=== PATIENT | female | born 1955 | race Caucasian/White ===

== ENCOUNTER 2022-03-05 05:12 | Observation (INO) ==
--- NOTE | 2022-01-29 13:08 | PAT Medication Instructions ---
Medication Instructions Date of Service January 29, 2022 Home Medications Medication Instructions Recorded Jenny Walker #1 ea 01/24/22 atorvastatin 10 mg tablet 10 mg PO QPM cholecalciferol (vitamin D3) 125 mcg (5,000 unit) capsule 125 mcg PO WK lisinopril 20 mg tablet 20 mg PO QAM metformin 500 mg tablet 500 mg PO QPM Jenny Gray #1 ea 01/24/22 [Rx] DO NOT take the morning of surgery cholecalciferol (vitamin D3) 125 mcg (5,000 unit) capsule 125 mcg PO WK lisinopril 20 mg tablet 20 mg PO QAM Take evening before surgery atorvastatin 10 mg tablet 10 mg PO QPM metformin 500 mg tablet 500 mg PO QPM Insulin Dependent Diabetic Patients NOTHING TO EAT OR DRINK AFTER MIDNIGHT. Other Notes If you have any questions please call us at [phone] or [phone] or [phone] or [phone]
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
[2022-03-05] MEDS ORDERED: LR 500ML BOLUS, THEN 15ML/HR IV SCH (06:00)
[2022-03-05] MEDS ORDERED: Ketorolac (*for OR use only*) 30 MG, dexAMETHasone 4 MG, KETAMINE HCL (**OR use only) 1... INFIL SCH (06:00)
[2022-03-05] MEDS ORDERED: ceFAZolin 2000MG 2,000 MG/15 ML SYR IV SCH (06:00)
[2022-03-05] MEDS ORDERED: dexAMETHasone 4 MG TAB PO SCH (06:00)
[2022-03-05] MEDS ORDERED: GABAPENTIN 600 MG DOSE PO SCH (06:00)
[2022-03-05] MEDS ORDERED: LR 60ML/HR IV SCH (06:00)
[2022-03-05] MEDS ORDERED: TRANEXAMIC ACID 1,000 MG **IV Pre-op IV SCH (06:00)
[2022-03-05] MEDS ORDERED: TRANEXAMIC ACID 1,000 MG **IV Intra-op IV SCH (06:00)
[2022-03-05] MEDS ORDERED: ACETAMINOPHEN 500 MG TAB PO SCH (06:00)
[2022-03-05] MEDS ORDERED: ROPIVACAINE 0.5% 5 MG/ML 30 ML VIAL ONE (06:30)
[2022-03-05] MEDS ORDERED: BUPIVACAINE 0.5 % 5 MG/1 ML PF 10ML VIAL ONE (06:30)
[2022-03-05] MEDS ORDERED: ORTHO JOINT ANESTHETIC ONE (06:39)
[2022-03-05] MEDS ORDERED: fentaNYL citrate 100 MCG/2 ML VIAL ONE (06:46)
[2022-03-05] MEDS ORDERED: MIDAZOLAM HCL 1 MG/ML 2ML VIAL ONE (06:46)
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
[2022-03-05] MEDS ORDERED: LIDOCAINE 2% MPF LOCAL 5 ML VIAL INFIL ONE (06:53)
[2022-03-05] MEDS ORDERED: PROPOFOL IV EMULSION 10 MG/ML 20 ML VIAL IV ONE ×4 (06:53→09:03)
[2022-03-05] MEDS ORDERED: SCOPOLAMINE 1 MG TDSY TD ONE (07:03)
[2022-03-05] MEDS ORDERED: ONDANSETRON INJ 2 MG/ML 2 ML VIAL ONE ×2 (07:36→09:39)
[2022-03-05] MEDS ORDERED: HYDROmorphone INJ 1 MG/ML SYRINGE IV PRN (08:05)
[2022-03-05] MEDS ORDERED: ONDANSETRON INJ 2 MG/ML 2 ML VIAL IV PRN ×2 (08:05→10:31)
[2022-03-05] MEDS ORDERED: KETOROLAC 30 MG/ML VIAL IV PRN (08:05)
[2022-03-05] MEDS ORDERED: ATROPINE SULFATE 0.1 MG/ML 10ML SYR IV PRN (08:05)
[2022-03-05] MEDS ORDERED: ePHEDrine sulfate 50 MG/ML AMP IV PRN (08:05)
[2022-03-05] MEDS ORDERED: PROMETHAZINE HCL 12.5 MG in SODIUM CHLORIDE 0.9% 50 ML IV PRN (08:05)
[2022-03-05] MEDS ORDERED: DEXAMETHASONE SOD INJ 4 MG/ML VIAL ONE ×2 (09:39→10:54)
--- NOTE | 2022-03-05 09:48 | Operative Report ---
PG Post Operative Report Pre & Post Diagnosis Operation Date: 03/05/22 07:15 Pre-Op Diagnosis: Bilateral Knee Osteoarthritis Post-Op Diagnosis: Bilateral Knee Osteoarthritis I identified the patient and participated in the time-out.: Yes Procedure Operation Date: 03/05/22 07:15 Actual Procedures p Bilateral Total Knee Arthroplasty, Cemented(Bilateral) - Jules Orlando DO Surgeon Jules Orlando DO Bilingual Speech Therapist Jules Rocha PA-C Estimated Blood Loss 50 Findings Consistent with Post-Op Diagnosis Specimens Right femoral and tibial bone Left femoral and tibial bone Description of Procedure Bonnie arrived [facility] for the above procedure. She was seen in the preoperative holding area and both knees were identified and signed. She was given a preoperative antibiotic, TXA, a spinal anesthetic and adductor nerve blocks. She was taken back to the operating room and laid on the table in supine position. She was given basic sedation. Both knees were then prepped and draped in sterile fashion. A timeout was done, and the patient and the operative extremities were properly identified. Right knee implants used: I used a Rand Persona total knee arthroplasty system with a size 4 standard PS femur, C tibia with a 30 mm stem extension, 31 oval patella, and a size 14 CPS polyethylene bearing. All components were cemented in place with Palacos G cement. A midline incision was made directly over the patella. Dissection was taken down to the extensor mechanism. A subvastus arthrotomy was used. The medial retinaculum was released and the fat pad was mostly excised. The knee was flexed and the ACL, PCL, and meniscus were removed. A drill was sent down the center of the femoral canal followed by an intramedullary joe. Off that joe a distal femoral cutting block was placed. 9 mm was resected off the distal femur at 5 of valgus. A posterior referencing AP sizing guide was then placed on the distal femur. The femur measured to be a size 4. 2 drill holes were placed in 3 of external rotation. A 4-in-1 cutting block was then impacted into place. Anterior, posterior, and chamfer cuts were then made. The proximal tibia was then exposed. An external tibial alignment guide was placed. A tibial cut guide was then anchored in place and the proximal tibia was then resected. The posterior aspect of the knee was then opened up and any additional meniscus fragments and osteophytes were removed. The tibia measured to be a size C. The tibial plate was then placed in the appropriate rotation and the tibia was drilled and punched. Trial components were then placed. I used a size 14 CPS polyethylene insert. The knee was brought through a full range of motion and felt to be stable. The peg holes for the femur were then drilled. The patella was then everted and 9 mm was resected off the posterior aspect of the patella. The patella measured to be a size 31 oval. 3 peg holes were then drilled. A trial patella was placed. The knee was once again brought through a full range of motion and felt to be stable. Trial components were then removed. The surrounding soft tissues were injected with 50 cc of an orthopedic pain control cocktail. All components were then cemented into place with Palacos G cement. The final polyethylene insert was then snapped into place. Once cement was dry the tourniquet was deflated. Hemostasis was obtained. A dilute betadyne lavage was then done for 3 minutes. The joint was then irrigated with normal saline solution. The subvastus arthrotomy was then closed with #1 Vicryl suture. The skin was closed with 2-0 Vicryl, 3-0V lock suture, and maddie. A Silverlon and a soft compressive dressing were placed. Left knee implants used: I used a Rand Persona total knee arthroplasty system with a size 5 standard PS femur, C tibia with a 30 mm stem extension, 28 oval patella, and a size 10 CPS polyethylene bearing. All components were cemented in place with Palacos G cement. A midline incision was made directly over the patella. Dissection was taken down to the extensor mechanism. A subvastus arthrotomy was used. The medial retinaculum was released and the fat pad was mostly excised. The knee was flexed and the ACL, PCL, and meniscus were removed. A drill was sent down the center of the femoral canal followed by an intramedullary joe. Off that joe a distal femoral cutting block was placed. 9 mm was resected off the distal femur at 5 of valgus. A posterior referencing AP sizing guide was then placed on the distal femur. The femur measured to be a size 5. 2 drill holes were placed in 3 of external rotation. A 4-in-1 cutting block was then impacted into place. Anterior, posterior, and chamfer cuts were then made. The proximal tibia was then exposed. An external tibial alignment guide was placed. A tibial cut guide was then anchored in place and the proximal tibia was resected. The posterior aspect of the knee was then opened up and any additional meniscus fragments and osteophytes were removed. The tibia measured to be a size C. The tibial plate was then placed in the appropriate rotation and the tibia was drilled and punched. Trial components were then placed. I used a size 10 CPS polyethylene insert. The knee was brought through a full range of motion and felt to be stable. The peg holes for the femur were then drilled. The patella was then everted and 9 mm was resected off the posterior aspect of the patella. The patella measured to be a size 28 oval. 3 peg holes were then drilled. A trial patella was placed. The knee was once again brought through a full range of motion and felt to be stable. Trial components were then removed. The surrounding soft tissues were injected with 50 cc of an orthopedic pain control cocktail. All components were then cemented into place with Palacos G cement. The final polyethylene insert was then snapped into place. Once cement was dry the tourniquet was deflated. Hemostasis was obtained. A dilute betadyne lavage was then done for 3 minutes. The joint was then irrigated with normal saline solution. The subvastus arthrotomy was then closed with #1 Vicryl suture. The skin was closed with 2-0 Vicryl, 3-0V lock suture, and maddie. A Silverlon and a soft compressive dressing were placed. Dale was then transferred to a hospital bed and taken to the postanesthesia care unit in stable condition. She tolerated the procedure well. Jules Rocha PA-C, was present for the entire procedure. He was critical for patient positioning, prepping, draping, retraction exposure, wound closure and application of sterile dressing. I attest to the content of the Intraoperative Record and any orders documented therein. Any exceptions are noted below.
--- NOTE | 2022-03-05 10:28 | XRay Report ---
XR knee LT 1 or 2V routine CLINICAL HISTORY: Surgical Post Op TECHNIQUE: 2 views of the left knee were obtained. Comparison: None available at the time of this dictation. FINDINGS: Patient is status post total knee arthroplasty with expected postsurgical changes including soft tiss ue swelling and subcutaneous emphysema. No periarticular lucency or hardware fracture is seen. IMPRESSION: Expected postoperative appearance status post placement of total knee arthroplasty. ACT 112: Negative or not required by law. Electronically signed by: Jericho Carr M.D. 03/05/2022 10:27 AM
[2022-03-05] MEDS ORDERED: bisacodyL 10 MG SUPP PR PRN (10:31)
[2022-03-05] MEDS ORDERED: MAGNESIUM HYDROXIDE SUSP 30 ML UDC PO PRN (10:31)
[2022-03-05] MEDS ORDERED: NALOXONE HCL 0.4 MG/1 ML VIAL/CARP IV PRN (10:31)
[2022-03-05] MEDS ORDERED: PHARMACY GLYCEMIC MGMT CONSULT PRN (10:31)
[2022-03-05] MEDS ORDERED: METOCLOPRAMIDE HCL INJ 5 MG/ML 2 ML VIAL IV PRN (10:31)
--- NOTE | 2022-03-05 10:32 | XRay Report ---
RIGHT KNEE 2 VIEWS History: Right total knee arthroplasty. Degenerative arthritis. Postop. FINDINGS: The patient is status post a right total knee arthroplasty. The hardware is intact. No frac ture or dislocation. Skin maddie are in place. IMPRESSION: Right total knee arthroplasty. No evidence for hardware complication. ACT 112: Negative or not required by law. Electronically signed by: Miki Delgadillo M.D. 03/05/2022 10:30 AM
--- NOTE | 2022-03-05 12:38 | Anesthesiology Progress Note ---
Date of Service March 05, 2022 Anesthesia Post Procedure Vital Signs Vital Signs: Temp Pulse Pulse Resp BP Pulse Ox O2 Del Method 03/05/22 11:30 68 18 110/87 97 Nasal Cannula 03/05/22 11:00 65 24 130/74 99 Nasal Cannula 03/05/22 10:30 71 17 117/71 97 Nasal Cannula 03/05/22 10:25 36.1 C L 74 14 126/71 97 Nasal Cannula 03/05/22 10:15 72 13 122/79 96 Nasal Cannula 03/05/22 10:05 82 12 111/62 95 Nasal Cannula 03/05/22 09:55 36.2 C L 91 H 23 112/60 92 Nasal Cannula 03/05/22 05:40 36.8 C 72 20 169/86 H 96 Room Air O2 Flow Rate 03/05/22 11:30 2 03/05/22 11:00 2 03/05/22 10:30 2 03/05/22 10:25 2 03/05/22 10:15 2 03/05/22 10:05 2 03/05/22 09:55 2 03/05/22 05:40 Transfer of Care Handoff Completed per policy Notes Mental Status: alert / awake / arousable Patient Amnestic to Procedure: Yes Nausea / Vomiting: adequately controlled Pain: adequately controlled Airway Patency, RR, SpO2: stable & adequate BP & HR: stable & adequate Hydration State: stable & adequate Neuraxial Anesthesia: was administered and sensory block is resolving Anesthetic Complications: no major complications apparent
[2022-03-05] MEDS ORDERED: LANTUS PER UNIT CHARGE SQ STA (12:52)
[2022-03-05] MEDS ORDERED: DEXTROSE 50% 50 ML SYRINGE IV PRN (13:00)
[2022-03-05] MEDS ORDERED: GLUCAGON FOR INJ 1 MG VIAL IM PRN (13:00)
[2022-03-05] MEDS ORDERED: GLUCOSE 10 TAB/TUBE PO PRN (13:00)
[2022-03-05] MEDS ORDERED: GLUCOSE 40% GEL 15 GM TUBE PO PRN (13:00)
[2022-03-05] MEDS ORDERED: CARBOHYDRATES FOR HYPOGLYCEMIA PO PRN (13:00)
--- NOTE | 2022-03-05 13:30 | Pharmacy Report ---
Pharmacy Glycemic Short Note 2 - Date of Service March 05, 2022 - Glycemic Short BSG Results (Last 24 hours): 03/05/22 03/05/22 05:30 09:56 POC Glucose 135 H 175 H OUTPATIENT ANTIDIABETIC REGIMEN: * Metformin 500 mg PO PM * HbA1c = 6.8% (02/07/22) ASSESSMENT: * 67 yo F admitted postoperatively following bilateral knee arthroplasties today. Pharmacy has been consulted to assist with inpatient glycemic managem ent. Patient is a well controlled type 2 diabetic on metformin monotherapy as an outpatient based on most recent A1c. Ordered and tolerating a type 2 diabetic diet. Did received 8 mg PO dexamethasone PO preoperatively and 4 mg IV dexamethasone intraoperatively. * Preop BSG was 135 mg/dL. Postop BSG was 175 mg/dL. * Will give a one-time dose of basal insulin today to cover for dexamethasone that was received. Given no further steroids ordered, do not expect patient to require more basal insulin tomorrow. Could likely be started back on Metformin tomorrow evening. * Starting Novolog based on weight/stress of 2-3. Will target a tighter goal range of 110-140 mg/dL to prevent postoperative infection and promote wound healing. PLAN FOR INPATIENT GLYCEMIC CONTROL: * Hold outpatient oral diabetes medications * Basal insulin * Lantus 25g units SC x 1 * Bolus insulin * NovoLog per scale ACHS or Q6hrs while NPO * Goal Range: Low 110 mg/dL - High 140 mg/dL * Correction Factor: 20 mg/dL/unit * Nutritional / Prandial insulin per carb ratio of 1 unit per 7 grams CHO consumed
[2022-03-05] MEDS: KETOROLAC 30 MG/ML VIAL IV SCH ×3 (13:48→21:35)
[2022-03-05] MEDS: SODIUM CHLORIDE 0.9% 1000ML 1,000 ML IV SCH ×2 (13:52→21:33)
[2022-03-05] MEDS: INSULIN ASPART PER UNIT SC SCH ×3 (14:06→21:32)
[2022-03-05] MEDS: ACETAMINOPHEN 500 MG TAB PO SCH ×2 (15:06→21:34)
[2022-03-05] MEDS: oxyCODONE HCL IR 5 MG TAB (IMMEDIATE RELEASE) PO PRN (16:07)
[2022-03-05] MEDS: ceFAZolin 2000MG 2,000 MG/15 ML SYR IV SCH (18:17)
[2022-03-05] MEDS: HYDROmorphone INJ 0.5 MG/0.5 ML SYR IV PRN (18:36)
[2022-03-05] MEDS: DOCUSATE SODIUM 100 MG CAP PO SCH (20:14)
[2022-03-05] MEDS ORDERED: ATORVASTATIN 10 MG TAB PO SCH (21:00)
[2022-03-05] MEDS ORDERED: SENNA 8.6 MG TAB PO SCH (21:00)
[2022-03-06] MEDS: INSULIN ASPART PER UNIT SC SCH ×4 (00:03→12:27)
[2022-03-06] MEDS: ceFAZolin 2000MG 2,000 MG/15 ML SYR IV SCH (00:13)
[2022-03-06] MEDS: oxyCODONE HCL IR 5 MG TAB (IMMEDIATE RELEASE) PO PRN ×3 (00:14→12:35)
[2022-03-06] MEDS: KETOROLAC 30 MG/ML VIAL IV SCH ×2 (05:02→10:38)
[2022-03-06] MEDS: ACETAMINOPHEN 500 MG TAB PO SCH ×2 (05:03→13:33)
--- NOTE | 2022-03-06 06:34 | Orthopedic Progress Note ---
Date of Service March 06, 2022 Assessment & Plan (1) Status post bilateral knee replacements: Overall she is doing very well. She is not having much pain in both knees. She will be seen by physical therapy today for ambulation and range of motion exercises. She is on Xarelto for DVT prophylaxis. She can be discharged home later today. She will follow-up with orthopedics in 2 weeks. Gorge Nicole was seen and examined at bedside this morning. Overall she is doing very well. She is having very little pain in her knees. She has been up and ambulating. She has no complaints.. Review of Systems All systems reviewed & are unremarkable except as noted in HPI & below. Physical Exam On physical examination of both knees, the dressings are clean and dry. Her legs are out full extension. She has active dorsiflexion plantarflexion of both ankles.. Results & Data Results & Data Laboratory Results . Diagnostic Findings Postoperative x-rays of both knees show the prosthesis to be in anatomic alignment without any evidence of fracture, desiccation, or loosening. PG Care Time/CCT Total # of Minutes Spent Total Time Spent with Patient: Total time spent is greater than 50% in coordination of care (as documented) at patient's floor/unit and/or counseling patient: Coding Level of Care Code 73583 Post Operative Follow-Up Diagnoses Status post bilateral knee replacements Z96.653
--- NOTE | 2022-03-06 06:35 | Discharge Summary ---
Date of Service March 06, 2022 Admission HPI (Per Admitting) Bonnie is a pleasant 66-year-old female whohas been dealing withchronicbilateral knee pain. It has been much worse recently. She works in retail. She has been seeingorthopedist in [place]. She has had multiple injections of her knees. She has MRIs of both knees and x-rays. Everything showschronic worsening arthritis of her knees. She isgetting to the point where she cannot live with it anymore. After failing extensive conservative treatment, she elected to proceed with bilateral knee replacement surgeries. . Admission Exam (Per Admitting) On physical examination of her knees, she has range of motion from 5 to 115 degrees. No instability. Pain over the distal medial femoral condyles and over the medial joint line.. Principal Diagnosis Same as "Discharge Diagnosis" noted below under Discharge Instructions. Discharge Exam On physical examination of both knees, the dressings are clean and dry. Her legs are out full extension. She has active dorsiflexion plantarflexion of both ankles.. Discharge Data Procedures Performed Operation Date: 03/05/22 07:15 Actual Procedures p Bilateral Total Knee Arthroplasty, Cemented(Bilateral) - Jules Orlando DO Ordered Studies 03/05/22 05:00 US - OR guided needle placemen Routine Hospital Course (1) Status post bilateral knee replacements: On March 05, 2022 Bonnie arrived at [facility] and underwent bilateral knee replacements without complication. She had a spinal anesthetic. Postoperatively she was started on Xarelto for DVT prophylaxis and transferred to the general orthopedic floors. Her hospital course was uneventful. On postop day #1, her vital signs were stable and her pain was well controlled. She was able to participate well with physical therapy doing ambulation and range of motion exercises. She was then discharged home. She will follow-up with orthopedics in 2 weeks. PG Care Time/CCT Total # of Minutes Spent Total Time Spent with Patient: Total time spent is greater than 50% in coordination of care (as documented) at patient's floor/unit and/or counseling patient: Discharge Plan Discharge Items Patient Disposition: Home - Home Health Services Reason For Visit: Bilateral Knee Osteoarthritis Discharge Diagnosis: Bilateral knee replacements Activity: Per Instructions section Non-emergency contact: Surgeon Call non-emergency contact if: your wound has increased redness and your wound has increased drainage Follow-up/Referrals: Felix Huang PA-C [Primary Care Provider] - Diet: Regular Addtl Attending Provider Instructions: Activity and Therapy Recommendations: * If you are using [facility] then therapy will be provided at your home until they feel you have accomplished all of your goals. * If you are using [facility] then Physical Therapy will be provided until they feel you are ready to start Outpatient Physical Therapy. * If you are not using home therapy then Outpatient Physical Therapy should start about 3-5 days from your day of surgery. Therapy will last about 6-10 weeks * It is important not to put a pillow under your knee when you are relaxing or sleeping. It is just as important to make sure you are getting your knee perfectly straight as it is to regain your knee bend. * You were shown a series of exercises in the hospital. Do these exercises three times each day including the exercises you were shown in physical therapy. * Get up and walk several times each day. For the first four weeks, try not to stand or walk for more than one hour at a time. If you do stand or walk for more than one hour, you will not hurt anything, but your leg will likely swell. * As you feel comfortable, you may change from the walker or crutches to a cane and then to independent walking. Medications: * Narcotic You will likely be sent home from the hospital with a prescription for the narcotic pain medication that worked best throughout your stay. * Aspirin Most patients will be required to take Aspirin 81mg twice a day for 6 weeks after surgery. This is obtained [id number] and a prescription is not necessary. * Other medications may be prescribed for specific circumstances. If you have any questions, please call the office at . * Resume previous home medications unless otherwise instructed TEDs/Elastic Stockings: The white elastic stockings help limit swelling and prevent blood clots from forming in your legs.~ The more you wear them, the more they work. Wear them for six weeks. Dressing Care: The dressing can be changed after physical therapy on postop day #1. Daily dry dressing changes for a few days, especially if the incision is still draining some. If the incision is not draining then you may leave the maddie open to air. If there is a little bit of drainage or if the maddie are getting stuck on your clothing then cover the incision with a dry dressing. The maddie will be removed at your 2 week follow-up appointment. Showering: You may shower 5 days from the day of surgery as long as the incision is no longer draining. You may shower with the maddie exposed. Let soapy water run over the maddie and pat them dry. Do not scrub or soak the incision. Things To Watch For: * Drainage from the incision site that occurs more than one week after your surgery. * Increased redness at the incision site. * Fever above 102 degrees Fahrenheit. * Unusual chest pain or shortness of breath. * Call [facility] at with any of the above problems Follow-Up Visit: Follow-up with Dr. Orlando's PA (Jules Rocha) 2-3 weeks after your day of surgery. He will remove your maddie and answer any questions. If you have any additional questions or concerns, Dr Orlando is usually in the office at the same time and will be available An appointment was probably scheduled when you signed-up for surgery in the office. If you have any questions call Office Instructions: More detailed instructions as well as Frequently Asked Questions were provided in a folder by our office when you signed-up for surgery. Please review these instructions when you get home. If you have any further questions or concerns, please feel free to call the office at [phone] Pending Studies at Discharge: No Stand-Alone Forms: My [facility] Medications and DC Order Prescriptions: New Xarelto 10 mg Tablet 10 mg PO DAILY 10 Days Qty: 10 0RF oxycodone-acetaminophen 5-325 mg tablet 1 tab PO Q6H PRN (Reason: pain) Qty: 30 0RF Continued (DME) Wheeled Walker Misc See Rx Instructions .MEDSUPPLY Qty: 1 0RF Rx Instructions: As directed metformin 500 mg tablet 500 mg PO QPM atorvastatin [Lipitor] 10 mg tablet 10 mg PO QPM lisinopril 20 mg tablet 20 mg PO QAM cholecalciferol (vitamin D3) 125 mcg (5,000 unit) capsule 125 mcg PO WK Rx Instructions: on Discharge Orders: Discharge Order (Routine); Ordered 03/06/22 Ordered By: Jules Orlando Admission Data Admit Date/Time: 03/05/22 09:56 Attending Provider: Jules Orlando Admit Provider: Jules Orlando Primary Care Provider: Felix Huang
[2022-03-06] MEDS: DOCUSATE SODIUM 100 MG CAP PO SCH (07:52)
[2022-03-06] MEDS: HYDROmorphone INJ 0.5 MG/0.5 ML SYR IV PRN (07:53)
[2022-03-06] MEDS ORDERED: RIVAROXABAN 10 MG TABLET PO SCH (09:00)
[2022-03-06] MEDS ORDERED: lisinopril 20 MG TAB PO SCH (09:00)
[2022-03-06] MEDS ORDERED: MULTIVITAMIN TAB PO SCH (09:00)
[2022-03-06 10:24] VITALS: BP 117/59; PULSE 100; TEMP 98.1; O2SAT 99
[2022-03-06] MEDS ORDERED: metFORMIN HCL 500 MG TAB PO SCH (16:30)
== END 2022-03-06 13:57 | disposition home health service (06) ==
LOC: PACUINP 05:12 → ASU 05:12 → 3E 12:46
DX: Z79.899 Other long term (current) drug therapy; Z88.8 Allergy status to other drugs, medicaments and biological substances; Z79.84 Long term (current) use of oral hypoglycemic drugs; M17.0 Bilateral primary osteoarthritis of knee